=== PATIENT | male | born 1960 | race Caucasian/White ===

== ENCOUNTER 2018-02-01 12:58 | Observation (INO) ==
[2018-02-01] MEDS ORDERED: Acetaminophen 325 MG Tablet PO ONE (13:16)
--- NOTE | 2018-02-01 13:28 | ED ---
HPI General Chief complaint: Respiratory Symptoms Stated complaint: Flu Like Sx/Hx Pneumonia Time Seen by Provider: 02/01/18 13:08 Source: patient and RN notes reviewed Mode of arrival: ambulatory History of Present Illness HPI narrative: 57yM presenting with fever, cough, and body aches. The patient states that for the past 3-4 days he's been having a cough productive of copious yellow sputum associated with tactile fevers/ chills, myalgias, fatigue , nausea, and nasal congestion. He has been taking Tylenol and Advil with no relief of symptoms. He denies known recent sick contacts or travel and did not receive a flu shot this year. History of pneumonia once in the past, no history of COPD/ asthma. Related Data Home Medications Medication Instructions Recorded Confirmed amlodipine 5 mg PO DAILY 01/20/18 01/20/18 aspirin 81 mg PO DAILY 01/20/18 01/20/18 atorvastatin 20 mg PO HS 01/20/18 01/20/18 metoprolol tartrate 25 mg PO BID 01/20/18 01/20/18 nitroglycerin [Nitrostat] 0.4 mg SUBLINGUAL Q5-15M PRN 01/20/18 01/20/18 Allergies Allergy/AdvReac Type Severity Reaction Status Date / Time No Known Allergies Allergy Verified 01/03/18 08:09 Review of Systems ROS: all other systems reviewed are negative Constitutional Reports chills and Reports fever(s) ENT Reports nasal congestion Cardiovascular Denies chest pain Respiratory Reports cough Gastrointestinal Reports nausea and Denies vomiting Genitourinary Reports dysuria Musculoskeletal Reports myalgias Neurologic Denies confusion Psychiatric Denies confusion PMFSH History History Provided By: Patient Medical History Medical History GERD (gastroesophageal reflux disease) (Acute) Bacterial heart infection (Acute) Chest pain (Acute) HTN (hypertension) (Acute) Surgical History Surgical History Hx of cardiac cath (Acute) Social History Social History Substance History: Active Abuse Smoking Status: Heavy tobacco smoker Tobacco Type: Cigarettes How Often Do You Have a Drink Containing Alcohol: 4 or more times a week Recent Travel in [facility] within the Last 8 Weeks: No Recent Out of Country Travel within the Last 8 Weeks: No Exam Const Other: Appears uncomfortable, no acute distress HENMT Face and sinus: normal facial exam Other: (+) nasal congestion Eyes General: appearance normal, both eyes and all related structures Chest Chest: normal inspection of the chest Resp Other: (+) cough noted during exam, no respiratory distress, speaking in complete sentences but O2 sats are 88-89% on room air Diminished breath sounds at bases bilaterally Cardio Rate: tachycardic Rhythm: regular rhythm GI Inspection: non-distended Palpation: soft and nontender Skin General: no rashes or lesions noted Neuro General: alert, awake, oriented x3 and no focal motor deficits Psych Affect: normal affect Course Initial Documented Vital Signs Temperature 101.2 F H 02/01/18 13:04 Pulse Rate 115 H 02/01/18 13:04 Respiratory Rate 20 02/01/18 13:04 Blood Pressure 143/84 H 02/01/18 13:04 Pulse Oximetry 89 L 02/01/18 13:04 Last Documented Vital Signs Temperature 101.2 F H 02/01/18 13:04 Pulse Rate 106 H 02/01/18 13:30 Respiratory Rate 19 02/01/18 13:30 Blood Pressure 143/84 H 02/01/18 13:04 Pulse Oximetry 92 L 02/01/18 13:20 Medical Decision Making [facility] Narrative Medical decision making narrative: Assessment: 57yM presenting with cough and fever Plan: EKG and monitor IV fluids, antipyretics Labs CXR Flu swab UA Addendum: Patient's CXR concerning for pneumonia, continues to have O2 sats in high 80s when taken off nasal cannula. Case discussed with Dr. Rebollar of [facility], patient to be kept for IV antibiotics/ monitoring/ IV fluids. Patient understands and agrees with plan. Medical Screen Exam Complete: Yes Emergency Medical Condition: Yes Differential Diagnosis Differential Diagnosis: Differential diagnosis includes, but is not limited to: pneumonia, pleural effusion, pulmonary edema, influenza, UTI, sepsis/ SIRS Lab Data Lab results reviewed: Yes I reviewed the patient's lab results. Result diagrams: 02/01/18 13:25 02/01/18 13:25 Lab Results 02/01/18 02/01/18 02/01/18 Range/Units 13:25 13:25 13:25 CBC w Diff Auto diff final WBC 10.4 (4.0-11.0) th/mm3 RBC 4.90 (4.50-5.90) mil/mm3 Hgb 14.1 (13.0-17.0) gm/dL Hct 42.1 (39.0-51.0) % MCV 86.0 (80.0-100.0) fL MCH 28.8 (27.0-34.0) pg MCHC 33.5 (32.0-36.0) % RDW 15.1 (11.6-17.2) % Plt Count 102 L (150-450) th/mm3 MPV 9.3 (7.0-11.0) fL Neut % (Auto) 86.9 H (16.0-70.0) % Lymph % (Auto) 8.6 L (9.0-44.0) % [place] % (Auto) 4.3 (0.0-8.0) % Eos % (Auto) 0.1 (0.0-4.0) % Baso % (Auto) 0.1 (0.0-2.0) % Neut # (Auto) 9.1 H (1.8-7.7) th/mm3 Lymph # (Auto) 0.9 L (1.0-4.8) th/mm3 [place] # (Auto) 0.4 (0.0-0.9) th/mm3 Eos # (Auto) 0.0 (0.0-0.4) th/mm3 Baso # (Auto) 0.0 (0.0-0.2) th/mm3 WBC Differential . Differential Comment . Sodium 132 L (136-145) meq/L Potassium 3.9 (3.5-5.1) meq/L Chloride 98 (98-107) meq/L Carbon Dioxide 26.1 (21.0-32.0) meq/L Anion Gap 8 (5-15) meq/L BUN 12 (7-18) mg/dL Creatinine 0.91 (0.60-1.30) mg/dL Estimated GFR 86 L (>89) mL/min Random Glucose 117 H (74-106) mg/dL Lactic Acid 1.3 (0.4-2.0) mmol/L Calcium 8.2 L (8.5-10.1) mg/dL Magnesium 1.6 (1.5-2.5) mg/dL Total Bilirubin 0.7 (0.2-1.0) mg/dL AST 26 (15-37) U/L ALT 21 (12-78) U/L Alkaline Phosphatase 82 (45-117) U/L Total Protein 8.3 H (6.4-8.2) g/dL Albumin 3.4 (3.4-5.0) g/dL Imaging Data Radiologist's impression: Chest X-Ray 02/01/18 13:16 CONCLUSION: Diffuse increased interstitial markings related to either diffuse interstitial disease or edema. ECG Data Attestation: I personally reviewed and interpreted this ECG as follows: Interpretation: Rate: 105 BPM Rhythm: Sinus Wells: Normal Intervals: Incomplete RBBB, QTc 366 ms Q waves: aVL T waves: Upright, no inversions ST segments: No elevations or depressions Impression: Sinus tachycardia, otherwise no changes as compared to EKG from 11/2017. Discharge Plan Discharge Disposition Patient Disposition: ED Admit(ED Internal Use Only) Discharge Condition Condition: Good Discharge Order Discharge Orders: ED Use Only Admit Order (Routine); Ordered 02/01/18 Ordered By: Julieth Claudio Discharge Details Diagnosis: Pneumonia, Sepsis, Hypoxia Physicians Team ED Provider: Julieth Claudio Primary Care Provider: Kieran Ko Rxs /Orders / Referrals /Forms Prescriptions: No Action atorvastatin 20 mg Tablet 20 mg PO HS RF: 0 amlodipine 5 mg Tablet 5 mg PO DAILY RF: 0 aspirin 81 mg Tablet,Delayed Release (Dr/Ec) 81 mg PO DAILY RF: 0 nitroglycerin [Nitrostat] 0.4 mg Tablet, Sublingual 0.4 mg SUBLINGUAL Q5-15M PRN (Reason: chest pain) RF: 0 metoprolol tartrate 25 mg Tablet 25 mg PO BID RF: 0 Discharge Interventions Interventions: Vital Signs Last Done: 02/01/18 13:04 Status ED Status: Pending Admission
[2018-02-01] MEDS ORDERED: Sod Chloride 0.9% Inj 1,000 ML IV.SIG SCH ×2 (13:30)
[2018-02-01 13:49] LABS: Baso % (Auto) 0.1 % (0.0-2.0); Eos % (Auto) 0.1 % (0.0-4.0); Hematocrit 42.1 % (39.0-51.0); Hemoglobin 14.1 gm/dL (13.0-17.0); Lymph # (Auto) 0.9 th/mm3 (1.0-4.8); Lymph % (Auto) 8.6 % (9.0-44.0); Mean Corpuscular HGB Conc 33.5 % (32.0-36.0); Mean Corpuscular Hemoglobin 28.8 pg (27.0-34.0); Mean Platelet Volume 9.3 fL (7.0-11.0); Mono # (Auto) 0.4 th/mm3 (0.0-0.9); Mono % (Auto) 4.3 % (0.0-8.0); Neut # (Auto) 9.1 th/mm3 (1.8-7.7); Neut % (Auto) 86.9 % (16.0-70.0); Platelet Count 102 th/mm3 (150-450); Red Cell Distribution Width 15.1 % (11.6-17.2); White Blood Count 10.4 th/mm3 (4.0-11.0)
[2018-02-01 13:53] LABS: Chloride 98 meq/L (98-107); Potassium 3.9 meq/L (3.5-5.1); Sodium 132 meq/L (136-145)
[2018-02-01 13:56] LABS: Calcium 8.2 mg/dL (8.5-10.1)
[2018-02-01 13:57] LABS: Albumin 3.4 g/dL (3.4-5.0); Anion Gap 8 meq/L (5-15); Blood Urea Nitrogen 12 mg/dL (7-18); Carbon Dioxide 26.1 meq/L (21.0-32.0); Glucose,Random 117 mg/dL (74-106); Magnesium 1.6 mg/dL (1.5-2.5)
[2018-02-01 14:00] LABS: Alanine Aminotransferase 21 U/L (12-78); Aspartate Aminotransferase 26 U/L (15-37); Glomerular Filtration Rate 86 mL/min (>89)
[2018-02-01 14:01] LABS: Total Protein 8.3 g/dL (6.4-8.2)
[2018-02-01 14:03] LABS: Alkaline Phosphatase 82 U/L (45-117)
[2018-02-01] MEDS ORDERED: Ketorolac Inj 30 MG/ML (IVP) Vial IV.PUSH ONE (14:04)
--- NOTE | 2018-02-01 14:30 | XR ---
EXAM DATE: 02/01/2018 2:18 PM EST AGE/SEX: 57 years / Male INDICATIONS: . Cough, short of breath CLINICAL DATA: This is the patient's initial encounter. Patient reports that signs and symptoms have been present for 4 - 6 days and indicates a pain score of 10/10. MEDICAL/SURGICAL HISTORY: None. None. COMPARISON: HPO, CHEST 1V SINGLE AP, 01/03/2018. . FINDINGS: The heart size is normal. The lungs demonstrate diffuse increased interstitial markings. No alveolar consolidation is seen. The lungs appear hyperinflated. No effusion is seen. CONCLUSION: Diffuse increased interstitial markings related to either diffuse interstitial disease or edema. Electronically signed by: Kota Zamarripa MD 02/01/2018 2:28 PM EST
[2018-02-01] MEDS ORDERED: Azithromycin Inj 500 MG in Sodium Chlor 0.9% Inj 250 ML IV.SIG ONE (15:03)
[2018-02-01] MEDS ORDERED: Sod Chloride 0.9% Inj 1,000 ML IV.SIG ONE (15:03)
[2018-02-01] MEDS ORDERED: Acetaminophen 325 MG Tablet PO PRN ×2 (17:18→17:24)
--- NOTE | 2018-02-01 17:18 | P.HP ---
History of Present Illness Service: medicine Primary Care Physician: Kieran Ko History of Present Illness: 57 year old male presents to ER for cough and congestions. States aprox 4-5 days ago developed a sore throat this was followed by nasal congestion and cough productive of yellowish green sputum. He states due to the cough he has been unable to eat or keep anything down. Last night he was burning up with fever and this morning he went to his outdoor shower in the rain in an attempt to bring his fever down, He has been using nyquil and ibuprofen at home. He smokes a pack a day for more then 30 yrs but has not smoked in the last 5 days. He does not feel he has been wheezing. He did receive a nebulizer treatment in the ER and he thinks this helped him clear his phlegm a little. He denies any chest pain but does state he was having chest pain for which he underwent a heart catherization and per his report it was negative. The chest pains stopped when he stopped talking Goodys powder every morning with breakfast before work. - Diagnosis (1) Pneumonia (2) Hypoxia Review of Systems Constitutional: Reports fever(s), Reports night sweats Ears, Nose, Mouth, and Throat: Reports nasal congestion, Reports nasal discharge , Reports sore throat Cardiovascular: Reports chest pain Comments: prior chest pain now resolved, neg heart cath, chest pain now with coughing Respiratory: Reports change in phlegm color, Reports chest congestion, Reports cough, Reports shortness of breath Gastrointestinal: Reports vomiting Comments: emesis with excessive coughing Musculoskeletal: Reports body aches PMFSH - History History Provided By: Patient, Friend, Medical Record - Medical / Surgical Hx Neg / Unobtainable Surgical History: No Previous Surgery - Medical History Medical History: Medical History (Last Updated 02/01/18 @ 16:49 by Leticia Miranda MD) GERD (gastroesophageal reflux disease) Hyperlipidemia Pericarditis Bacterial heart infection Chest pain HTN (hypertension) - Surgical History Surgical History: Surgical History (Last Reviewed 02/01/18 @ 16:49 by Leticia Miranda MD) Hx of cardiac cath - Social History I have reviewed the patient's Social History: Yes - Tobacco History Tobacco Use In Past 30 Days: Yes Smoking Status: Heavy tobacco smoker Tobacco Type: Cigarettes Packs Per Day: 1 Years Smoked: 30 - Alcohol History How Often Do You Have a Drink Containing Alcohol: 4 or more times a week - Substance Use History Substance History: Active Abuse - Substance Use Type Marijuana Status: Active Route Used: Inhalation Last Used: DAILY Reason for Use: Feels Good, Get High - Travel History Recent Travel in the [place] Within the Last 8 Weeks: No Recent Travel Out of the Country Within the Last 8 Weeks: No - Immunization History Tetanus Immunization: Unsure Medications and Allergies Active Medications: Active Medications Sodium Chloride (Ns Inj) 1,000 mls @ 0 mls/hr IV.SIG .Q0M STAR Last Infusion: 02/01/18 15:42 Dose: Infused Sodium Chloride (Ns Inj) 1,000 mls @ 0 mls/hr IV.SIG .Q0M STAR Last Infusion: 02/01/18 16:39 Dose: Infused Allergies Allergy/AdvReac Type Severity Reaction Status Date / Time No Known Allergies Allergy Verified 01/03/18 08:09 Home Medications Medication Instructions Recorded Confirmed Type amlodipine 5 mg PO DAILY 01/20/18 02/01/18 History aspirin 81 mg PO DAILY 01/20/18 02/01/18 History atorvastatin 20 mg PO HS 01/20/18 02/01/18 History metoprolol tartrate 25 mg PO BID 01/20/18 02/01/18 History nitroglycerin [Nitrostat] 0.4 mg SUBLINGUAL Q5-15M PRN 01/20/18 02/01/18 History omeprazole magnesium [Prilosec OTC] 20 mg PO DAILY 02/01/18 02/01/18 History Exam Vital signs: Vital Signs 02/01/18 13:04 02/01/18 13:15 02/01/18 13:16 Temperature 101.2 F H Pulse Rate 115 H 110 H Respiratory Rate 20 Blood Pressure 143/84 H Pulse Oximetry 89 L 88 L 02/01/18 13:20 02/01/18 13:30 02/01/18 15:16 Temperature 98.9 F Pulse Rate 106 H 88 Respiratory Rate 19 16 Blood Pressure 119/70 Pulse Oximetry 92 L 96 02/01/18 15:23 Temperature Pulse Rate Respiratory Rate 16 Blood Pressure Pulse Oximetry Intake & Output 01/31/18 02/01/18 02/01/18 18:59 06:59 18:59 Intake Total 1999 Balance 1999 Weight 79 kg Intake: IV 1999 NS Inj 1,000 ML @ Wide Open IV. 1999 SIG .Q0M [facility] Rx#:[id number] - Constitutional mild distress, average body habitus - Routine HEENT Exam Head: Present: normocephalic Eye: Present: EOMI, conjunctivae pink ENT: Present: mucous membranes moist, oropharynx clear Comments: poor dentition - Routine Neck Exam Present: supple, full ROM - Routine Respiratory Exam Present: decreased breath sounds Comments: faint wheeze left upper lobe - Routine Cardiovascular Exam Present: RRR - Routine Abdominal Exam Present: soft, normoactive bowel sounds - Routine Extremities Exam Present: full ROM - Routine Skin Exam Present: intact, warm - Routine Neurological Exam Present: alert, oriented X3 Results - Labs CBC & Chem 7: 02/01/18 13:25 02/01/18 13:25 Labs: Laboratory Results - last 24 hr 02/01/18 02/01/18 02/01/18 13:25 13:25 13:25 CBC w Diff Auto diff final WBC 10.4 RBC 4.90 Hgb 14.1 Hct 42.1 MCV 86.0 MCH 28.8 MCHC 33.5 RDW 15.1 Plt Count 102 L MPV 9.3 Neut % (Auto) 86.9 H Lymph % (Auto) 8.6 L [place] % (Auto) 4.3 Eos % (Auto) 0.1 Baso % (Auto) 0.1 Neut # (Auto) 9.1 H Lymph # (Auto) 0.9 L [place] # (Auto) 0.4 Eos # (Auto) 0.0 Baso # (Auto) 0.0 WBC Differential . Differential Comment . Sodium 132 L Potassium 3.9 Chloride 98 Carbon Dioxide 26.1 Anion Gap 8 BUN 12 Creatinine 0.91 Estimated GFR 86 L Random Glucose 117 H Lactic Acid 1.3 Calcium 8.2 L Magnesium 1.6 Total Bilirubin 0.7 AST 26 ALT 21 Alkaline Phosphatase 82 Total Protein 8.3 H Albumin 3.4 - Imaging Impressions Chest X-Ray 02/01/18 13:16 CONCLUSION: Diffuse increased interstitial markings related to either diffuse interstitial disease or edema. Caprini VTE Risk Assessment Caprini VTE Risk Assessment: Moderate/High Risk (score >= 2) Caprini Risk Assessment Model: Point Value = 1 Point Value = 2 Point Value = 3 Point Value = 5 Age 41-60 Minor surgery BMI > 25 kg/m2 Swollen legs Varicose veins or History of unexplained or recurrent spontaneous Oral contraceptives or hormone replacement Sepsis (< 1 month) Serious lung disease, including pneumonia (< 1 month) Abnormal pulmonary function Acute myocardial infarction Congestive heart failure (< 1 month) History of inflammatory bowel disease Medical patient at bed rest Age 61-74 Arthroscopic surgery Major open surgery (> 45 min) Laparoscopic surgery (> 45 min) Malignancy Confined to bed (> 72 hours) Immobilizing plaster cast Central venous access Age >= 75 History of VTE Family history of VTE Factor V Leiden Prothrombin [id number] Lupus anticoagulant Anticardiolipin antibodies Elevated serum homocysteine Heparin-induced thrombocytopenia Other congenital or acquired thrombophilia Stroke (< 1 month) Elective arthroplasty Hip, pelvis, or leg fracture Acute spinal cord injury (< 1 month) Prophylaxis Regimen: Total Risk Factor Score Risk Level Prophylaxis Regimen 0-1 Low Early ambulation 2 Moderate Order ONE of the following: *Sequential Compression Device (SCD) *Heparin 5000 units SQ BID 3-4 Higher Order ONE of the following medications: *Heparin 5000 units SQ TID *Enoxaparin/Lovenox 40 mg SQ daily (WT < 150 kg, CrCl > 30 mL/min) *Enoxaparin/Lovenox 30 mg SQ daily (WT < 150 kg, CrCl > 10-29 mL/min) *Enoxaparin/Lovenox 30 mg SQ BID (WT < 150 kg, CrCl > 30 mL/min) AND/OR *Sequential Compression Device (SCD) 5 or more Highest Order ONE of the following medications: *Heparin 5000 units SQ TID (Preferred with Epidurals) *Enoxaparin/Lovenox 40 mg SQ daily (WT < 150 kg, CrCl > 30 mL/min) *Enoxaparin/Lovenox 30 mg SQ daily (WT < 150 kg, CrCl > 10-29 mL/min) *Enoxaparin/Lovenox 30 mg SQ BID (WT < 150 kg, CrCl > 30 mL/min) AND *Sequential Compression Device (SCD) Assessment and Plan - Assessment (1) Pneumonia Code(s): J18.9 - Pneumonia, unspecified organism Status: Acute Plan: cont iv antibiotics , obtain sputum culture , xray shows interstitial lung disease which may or may not be infectious, monitor (2) Hypoxia Code(s): R09.02 - Hypoxemia Status: Acute Plan: continue supplemental oxygen, given smoking hx and faint wheeze on exam will treat with nebulizers as well (1) Pneumonia Qualifiers: Pneumonia type: due to unspecified organism Laterality: unspecified laterality
[2018-02-01] MEDS ORDERED: Temazepam 15 MG Capsule PO PRN (17:24)
[2018-02-01] MEDS ORDERED: Nitroglycerin SL (Override) 0.4 MG Tab SL PRN (17:26)
[2018-02-01] MEDS: Sod Chloride 0.9% Inj 1,000 ML IV.CONT SCH (17:50)
[2018-02-01] MEDS: Enoxaparin Inj 40 MG/0.4 ML Syringe SQ SCH (17:51)
[2018-02-01] MEDS: guaiFENesin/Codeine Syrup 200 MG/20 MG 10 ML UDC PO PRN (17:51)
[2018-02-01 18:09] LABS: Bilirubin,Urine Negative (Negative); Clarity,Urine Clear (Clear); Color,Urine Yellow (Yellw/Straw); Glucose,Urine (UA) Negative (Negative); Leukocyte Esterase,Urine Negative (Negative); Nitrite,Urine Negative (Negative); Specific Gravity,Urine 1.025 (1.002-1.035)
[2018-02-01 18:13] LABS: RBC,Urine 0-3 /hpf (0-3); Squamous Epithelial Cell,Urine 0-5 /hpf (0-5); WBC,Urine 0-5 /hpf (0-5)
[2018-02-01] MEDS: Metoprolol Tartrate 25 MG Tablet PO SCH (20:02)
[2018-02-02] MEDS: Sod Chloride 0.9% Inj 1,000 ML IV.CONT SCH ×2 (04:57→16:36)
[2018-02-02] MEDS: guaiFENesin/Codeine Syrup 200 MG/20 MG 10 ML UDC PO PRN ×4 (05:22→21:06)
[2018-02-02 06:22] LABS: Baso % (Auto) 0.2 % (0.0-2.0); Eos # (Auto) 0.1 th/mm3 (0.0-0.4); Eos % (Auto) 1.1 % (0.0-4.0); Hematocrit 35.7 % (39.0-51.0); Hemoglobin 11.7 gm/dL (13.0-17.0); Lymph # (Auto) 1.2 th/mm3 (1.0-4.8); Lymph % (Auto) 16.3 % (9.0-44.0); Mean Corpuscular HGB Conc 32.8 % (32.0-36.0); Mean Corpuscular Hemoglobin 28.8 pg (27.0-34.0); Mean Corpuscular Volume 87.8 fL (80.0-100.0); Mean Platelet Volume 11.3 fL (7.0-11.0); Mono # (Auto) 0.5 th/mm3 (0.0-0.9); Neut # (Auto) 5.6 th/mm3 (1.8-7.7); Neut % (Auto) 75.4 % (16.0-70.0); Platelet Count 80 th/mm3 (150-450); Red Blood Count 4.06 mil/mm3 (4.50-5.90); Red Cell Distribution Width 15.2 % (11.6-17.2); White Blood Count 7.4 th/mm3 (4.0-11.0)
[2018-02-02 06:29] LABS: Chloride 103 meq/L (98-107); Potassium 3.6 meq/L (3.5-5.1); Sodium 137 meq/L (136-145)
[2018-02-02 06:43] LABS: Alanine Aminotransferase 21 U/L (12-78); Albumin 2.6 g/dL (3.4-5.0); Alkaline Phosphatase 59 U/L (45-117); Anion Gap 7 meq/L (5-15); Aspartate Aminotransferase 36 U/L (15-37); Blood Urea Nitrogen 9 mg/dL (7-18); Calcium 7.4 mg/dL (8.5-10.1); Carbon Dioxide 26.7 meq/L (21.0-32.0); Glomerular Filtration Rate Greater Than 89 mL/min (>89); Glucose,Random 98 mg/dL (74-106); RBC Morphology Normal (Normal); Total Protein 6.7 g/dL (6.4-8.2)
[2018-02-02 06:44] LABS: Platelet Morphology Normal (Normal)
[2018-02-02] MEDS: Metoprolol Tartrate 25 MG Tablet PO SCH ×2 (08:50→20:59)
[2018-02-02] MEDS: Pantoprazole Sodium 20 MG DR Tablet PO SCH (08:50)
[2018-02-02] MEDS: amLODIPine 5 MG Tablet PO SCH (08:50)
--- NOTE | 2018-02-02 12:18 | P.PN ---
Subjective Interval history: slept poorly last night, doesn't normally sleep well, still coughing but able to eat, poor appetite Physical Exam Vital signs: Vital Signs 02/01/18 13:04 02/01/18 13:15 02/01/18 13:16 Temperature 101.2 F H Pulse Rate 115 H 110 H Respiratory Rate 20 Blood Pressure 143/84 H Pulse Oximetry 89 L 88 L 02/01/18 13:20 02/01/18 13:30 02/01/18 15:16 Temperature 98.9 F Pulse Rate 106 H 88 Respiratory Rate 19 16 Blood Pressure 119/70 Pulse Oximetry 92 L 96 02/01/18 15:23 02/01/18 20:00 02/01/18 20:23 Temperature 100 F H Pulse Rate 104 H 104 H Respiratory Rate 16 20 22 Blood Pressure 163/96 H Pulse Oximetry 93 L 94 L 02/02/18 00:00 02/02/18 04:00 02/02/18 07:17 Temperature 100.3 F H 98.6 F Pulse Rate 83 80 83 Respiratory Rate 20 20 16 Blood Pressure 140/70 118/60 Pulse Oximetry 97 95 97 02/02/18 08:00 Temperature 98.1 F Pulse Rate 75 Respiratory Rate 20 Blood Pressure 115/66 Pulse Oximetry 98 Intake & Output 02/01/18 02/02/18 02/02/18 18:59 06:59 18:59 Intake Total 3350 / 3350 1000 / 1000 Output Total 250 / 250 400 / 400 Balance 3100 / 3100 600 / 600 Weight 79 kg Intake: IV 3350 / 3350 1000 / 1000 NS Inj 1,000 ML @ 100 mls/hr IV 1000 / 1000 .CONT .Q10H STAR Rx#:[id number] Azithromycin Inj 500 MG In NS 250 / 250 Inj 250 ML @ 250 mls/hr IV.SIG ONCE ONE Rx#:[id number] NS Inj 1,000 ML @ Wide Open IV. 3000 / 3000 SIG BOLUS ONE Rx#:[id number] Rocephin Inj 1,000 MG In NS Inj 100 / 100 100 ML @ 200 mls/hr IV.SIG ONCE ONE Rx#:[id number] Output: Urine 250 / 250 400 / 400 Other: Date of Last Bowel Movement 01/31/18 02/01/18 02/01/18 Weight On Admission 79 kg - Constitutional no acute distress - Routine HEENT Exam Head: Present: normocephalic ENT: Present: mucous membranes moist - Routine Neck Exam Present: supple - Routine Respiratory Exam Present: decreased breath sounds - Routine Cardiovascular Exam Present: RRR - Routine Abdominal Exam Present: soft, normoactive bowel sounds - Routine Skin Exam Present: intact, warm - Routine Neurological Exam Present: alert, oriented X3 - Routine Psychiatric Exam Present: normal affect, normal thought process Results - Labs CBC & Chem 7: 02/02/18 05:10 02/02/18 05:10 Laboratory Results - last 24 hr 02/01/18 02/01/18 02/01/18 13:25 13:25 13:25 CBC w Diff Auto diff final WBC 10.4 RBC 4.90 Hgb 14.1 Hct 42.1 MCV 86.0 MCH 28.8 MCHC 33.5 RDW 15.1 Plt Count 102 L MPV 9.3 Neut % (Auto) 86.9 H Lymph % (Auto) 8.6 L [place] % (Auto) 4.3 Eos % (Auto) 0.1 Baso % (Auto) 0.1 Neut # (Auto) 9.1 H Lymph # (Auto) 0.9 L [place] # (Auto) 0.4 Eos # (Auto) 0.0 Baso # (Auto) 0.0 WBC Differential . Diff Scan Differential Comment . Platelet Estimate Platelet Morphology RBC Morphology Sodium 132 L Potassium 3.9 Chloride 98 Carbon Dioxide 26.1 Anion Gap 8 BUN 12 Creatinine 0.91 Estimated GFR 86 L POC Glucose Random Glucose 117 H Lactic Acid 1.3 Calcium 8.2 L Calcium Adj for Albumin Magnesium 1.6 Total Bilirubin 0.7 AST 26 ALT 21 Alkaline Phosphatase 82 Total Protein 8.3 H Albumin 3.4 Urine Color Urine Clarity Urine pH Ur Specific [place] Urine Protein Urine Glucose (UA) Urine Ketones Urine Occult Blood Urine Nitrate Urine Bilirubin Urine Urobilinogen Ur Leukocyte Esterase Urine RBC Urine WBC Ur Squamous Epith Cells Micro UA Comment Ur Microscopic Review Urine Culture Comments 02/01/18 02/02/18 02/02/18 17:45 05:10 05:10 CBC w Diff Slide review pending WBC 7.4 RBC 4.06 L Hgb 11.7 L D Hct 35.7 L MCV 87.8 MCH 28.8 MCHC 32.8 RDW 15.2 Plt Count 80 L MPV 11.3 H Neut % (Auto) 75.4 H Lymph % (Auto) 16.3 [place] % (Auto) 7.0 Eos % (Auto) 1.1 Baso % (Auto) 0.2 Neut # (Auto) 5.6 Lymph # (Auto) 1.2 [place] # (Auto) 0.5 Eos # (Auto) 0.1 Baso # (Auto) 0.0 WBC Differential . Diff Scan Auto diff confirmed Differential Comment . Platelet Estimate Low L Platelet Morphology Normal RBC Morphology Normal Sodium 137 Potassium 3.6 Chloride 103 Carbon Dioxide 26.7 Anion Gap 7 BUN 9 Creatinine 0.79 Estimated GFR Greater than 89 POC Glucose Random Glucose 98 Lactic Acid Calcium 7.4 L* D Calcium Adj for Albumin 8.5 Magnesium Total Bilirubin 0.6 AST 36 ALT 21 Alkaline Phosphatase 59 Total Protein 6.7 D Albumin 2.6 L D Urine Color Yellow Urine Clarity Clear Urine pH 6.0 Ur Specific [place] 1.025 Urine Protein Trace Urine Glucose (UA) Negative Urine Ketones Negative Urine Occult Blood Negative Urine Nitrate Negative Urine Bilirubin Negative Urine Urobilinogen 1.0 Ur Leukocyte Esterase Negative Urine RBC 0-3 Urine WBC 0-5 Ur Squamous Epith Cells 0-5 Micro UA Comment Culture not ind Ur Microscopic Review Microscopic reviewed Urine Culture Comments Culture not ind 02/02/18 02/02/18 07:10 11:21 CBC w Diff WBC RBC Hgb Hct MCV MCH MCHC RDW Plt Count MPV Neut % (Auto) Lymph % (Auto) [place] % (Auto) Eos % (Auto) Baso % (Auto) Neut # (Auto) Lymph # (Auto) [place] # (Auto) Eos # (Auto) Baso # (Auto) WBC Differential Diff Scan Differential Comment Platelet Estimate Platelet Morphology RBC Morphology Sodium Potassium Chloride Carbon Dioxide Anion Gap BUN Creatinine Estimated GFR POC Glucose 114 H 91 Random Glucose Lactic Acid Calcium Calcium Adj for Albumin Magnesium Total Bilirubin AST ALT Alkaline Phosphatase Total Protein Albumin Urine Color Urine Clarity Urine pH Ur Specific [place] Urine Protein Urine Glucose (UA) Urine Ketones Urine Occult Blood Urine Nitrate Urine Bilirubin Urine Urobilinogen Ur Leukocyte Esterase Urine RBC Urine WBC Ur Squamous Epith Cells Micro UA Comment Ur Microscopic Review Urine Culture Comments Microbiology 02/01/18 13:35 Blood - Peripheral Aerobic Blood Culture - Preliminary No growth in 1 day 02/01/18 13:35 Blood - Peripheral Anaerobic Blood Culture - Preliminary No growth in 1 day 02/01/18 13:25 Blood - Peripheral Aerobic Blood Culture - Preliminary No growth in 1 day 02/01/18 13:25 Blood - Peripheral Anaerobic Blood Culture - Preliminary No growth in 1 day 02/01/18 17:45 Sputum - Expectorated Sputum Gram Stain - Final 02/01/18 17:45 Urine - Clean Catch Urine Streptococcus pneumoniae Antigen ( M - Final Presumptive negative for streptococcus pneumoniae antigen, suggesting no current or recent infection. Infection due to Streptococcus pneumoniae cannot be ruled out since the antigen present in the sample may be below the detection limit of the test. 02/01/18 17:45 Urine - Clean Catch Urine Legionella Antigen - Final Presumptive negative for Legionella pneumophila serogroup 1 antigen in urine, suggesting no recent or recurrent infection. Infection due to Legionella cannot be ruled out since other serogroups and species may cause disease, antigen may not be present in urine in early infection, and the level of antigen present in the urine may be below the detection limit of the test. 02/01/18 14:35 Nasal Wash Influenza Types A,B Antigen - Final Negative for FLU A and B antigen Infection due to influenza A or B cannot be ruled out since the antigen present in the sample may be below the detection limit of the test. - Imaging Impressions Chest X-Ray 02/01/18 13:16 CONCLUSION: Diffuse increased interstitial markings related to either diffuse interstitial disease or edema. Assessment and Plan - Assessment (1) Pneumonia Code(s): J18.9 - Pneumonia, unspecified organism Status: Acute Plan: cont iv antibiotics , obtain sputum culture , xray shows interstitial lung disease which may or may not be infectious , fever curve trending down (2) Hypoxia Code(s): R09.02 - Hypoxemia Status: Acute Plan: continue supplemental oxygen, cont nebulizers, titrate oxygen (1) Pneumonia Qualifiers: Pneumonia type: due to unspecified organism Laterality: unspecified laterality
[2018-02-02] MEDS ORDERED: MethylPREDNISolone Sod Succinate Inj 125 MG/2 ML Vial IV.PUSH ONE (15:55)
[2018-02-02] MEDS: Folic Acid 1 MG Tablet PO SCH (16:38)
[2018-02-02] MEDS: Azithromycin Inj 500 MG in Sodium Chlor 0.9% Inj 250 ML IV.SIG SCH (16:38)
[2018-02-02] MEDS: Enoxaparin Inj 40 MG/0.4 ML Syringe SQ SCH (17:23)
--- NOTE | 2018-02-02 18:57 | ECG ---
Date Performed: 02/01/2018 Time Performed: 13:39:01 PTAGE: 57 years EKG: SINUS TACHYCARDIA INDETERMINATE AXIS INCOMPLETE RIGHT BUNDLE BRANCH BLOCK ABNORMAL RHYTHM E CG PREVIOUS TRACING : 01/03/2018 07.55 Since the previous tracing, no significant change noted DOCTOR: Javi Miller Interpretating Date/Time 02/02/2018 18:55:06
[2018-02-02] MEDS ORDERED: Temazepam 15 MG Capsule PO PRN (20:06)
[2018-02-03] MEDS: Sod Chloride 0.9% Inj 1,000 ML IV.CONT SCH (01:27)
[2018-02-03] MEDS: guaiFENesin/Codeine Syrup 200 MG/20 MG 10 ML UDC PO PRN ×4 (04:36→17:56)
[2018-02-03] MEDS: amLODIPine 5 MG Tablet PO SCH (08:49)
[2018-02-03] MEDS: Metoprolol Tartrate 25 MG Tablet PO SCH (08:49)
[2018-02-03] MEDS: Pantoprazole Sodium 20 MG DR Tablet PO SCH (08:49)
[2018-02-03] MEDS: Folic Acid 1 MG Tablet PO SCH (08:49)
--- NOTE | 2018-02-03 11:19 | P.PN ---
Subjective Interval history: coughing less, nose has been dry, some rectal bleeding, states has seen Dr Pierce for this but sounds like surgery was held . 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 Physical Exam Vital signs: Vital Signs 02/02/18 12:00 02/02/18 15:46 02/02/18 16:00 Temperature 97.5 F L 98.3 F Pulse Rate 70 93 H 73 Respiratory Rate 20 20 20 Blood Pressure 111/58 L 111/67 Pulse Oximetry 98 97 97 02/02/18 19:44 02/02/18 20:00 02/03/18 00:00 Temperature 97.0 F L 97.6 F Pulse Rate 74 73 64 Respiratory Rate 18 18 18 Blood Pressure 121/75 104/64 Pulse Oximetry 94 L 94 L 96 02/03/18 05:09 02/03/18 08:00 02/03/18 08:05 Temperature 97 F L 97.3 F L Pulse Rate 77 79 70 Respiratory Rate 18 19 16 Blood Pressure 110/60 117/69 Pulse Oximetry 92 L 90 L 96 Intake & Output 02/02/18 02/03/18 02/03/18 18:59 06:59 18:59 Intake Total 1949 1480 / 1480 Output Total 500 / 500 Balance 1949 980 / 980 Weight 82.3 kg Intake: IV 1350 / 1350 1000 / 1000 NS Inj 1,000 ML @ 100 mls/hr IV 1000 / 1000 1000 / 1000 .CONT .Q10H STAR Rx#:[id number] Azithromycin Inj 500 MG In NS 250 / 250 Inj 250 ML @ 250 mls/hr IV.SIG Q24H STAR Rx#:[id number] Rocephin Inj 1,000 MG In NS Inj 100 / 100 100 ML @ 200 mls/hr IV.SIG Q24H STAR Rx#:[id number] Oral 600 / 600 480 / 480 Output: Urine 500 / 500 Other: # Voids 5 Date of Last Bowel Movement 02/01/18 02/03/18 # Bowel Movements 0 - Constitutional no acute distress Comments: standing at side of bed off oxygen - Routine HEENT Exam Head: Present: normocephalic ENT: Present: mucous membranes moist - Routine Respiratory Exam Present: decreased breath sounds Comments: better air exchange today, some faint crackles occ wheeze - Routine Cardiovascular Exam Present: RRR Comments: no murmurs - Routine Abdominal Exam Present: soft, normoactive bowel sounds - Routine Skin Exam Present: dry, warm - Routine Psychiatric Exam Present: normal affect, normal thought process Results - Labs CBC & Chem 7: 02/02/18 05:10 02/02/18 05:10 Laboratory Results - last 24 hr 02/02/18 11:21 POC Glucose 91 Microbiology 02/01/18 13:35 Blood - Peripheral Aerobic Blood Culture - Preliminary No growth in 2 days 02/01/18 13:35 Blood - Peripheral Anaerobic Blood Culture - Preliminary No growth in 2 days 02/01/18 13:25 Blood - Peripheral Aerobic Blood Culture - Preliminary No growth in 2 days 02/01/18 13:25 Blood - Peripheral Anaerobic Blood Culture - Preliminary No growth in 2 days 02/01/18 17:45 Sputum - Expectorated Sputum Gram Stain - Final Assessment and Plan - Assessment (1) Pneumonia Code(s): J18.9 - Pneumonia, unspecified organism Status: Acute Plan: cont iv antibiotics , cultures negative so far, afebrile 24 hours (2) Hypoxia Code(s): R09.02 - Hypoxemia Status: Acute Plan: ambulate , cont nebulizers, supplemental 0 2 as needed - Plan titrate oxygen, iv steroids today then po tamiko with po antibiotics plan to discharge in am 5:35 pm came by to recheck patient and friend was at bedside, he is doing much better, did oxygen walk test and sats were 93%, he is ready to go home. He tells me he no longer is going to smoke. 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 He has had multiple issues since the beginning of the year and will follow up with his pcp to review all his testing and what he needs to go foward with (1) Pneumonia Qualifiers: Pneumonia type: due to unspecified organism Laterality: unspecified laterality
[2018-02-03] MEDS ORDERED: MethylPREDNISolone Sod Succinate Inj 40 MG/ML Vial IV.PUSH SCH (12:00)
--- NOTE | 2018-02-03 12:48 | XR ---
EXAM DATE: 02/03/2018 12:41 PM EST AGE/SEX: 57 years / Male INDICATIONS: . Cough. CLINICAL DATA: This is the patient's subsequent encounter. Patient reports that signs and symptoms h ave been present for 2 days and indicates a pain score of 0/10. MEDICAL/SURGICAL HISTORY: Hypertension. Gastroesophageal reflux disease. Pericarditis. Hyperli pidemia. Smoker. . Cardiac cath. COMPARISON: [facility], CHEST 2V PA&LAT, 02/01/2018. . FINDINGS: PA and lateral views of the chest demonstrate the lungs to be symmetrically aerated without evidence of mass, fluid infiltrate or effusion. Streaky mild opacity is present in both lungs. The cardiomedia stinal contours are unremarkable. Osseous structures are intact. CONCLUSION: Mild streaky opacity in both lungs which could represent a community acquired pneumonia. Mild pulmona ry edema could have a similar appearance. Electronically signed by: Raj Spencer MD 02/03/2018 12:47 PM EST
[2018-02-03 13:01] VITALS: BP 109/62; TEMP 97.9
[2018-02-03 13:59] VITALS: PULSE 72; RESP 16
[2018-02-03] MEDS: Azithromycin Inj 500 MG in Sodium Chlor 0.9% Inj 250 ML IV.SIG SCH (16:00)
[2018-02-03 17:30] VITALS: O2SAT 92
== END 2018-02-03 06:00 | disposition home or self-care (01) ==
LOC: PHEDA 12:58 → PHED 12:58 → PH3 16:11
PROVIDERS: ADMIT Legal Medicine; ATTEND Legal Medicine